=== PATIENT | male | born 1980 | race Caucasian/White ===

== ENCOUNTER 2018-02-17 19:02 | Emergency (ER) | payer SELFPAY ==
[2018-02-17 19:03] VITALS: BP 142/86; PULSE 111; RESP 16; TEMP 36.7; O2SAT 98; BMI 21.7
--- NOTE | 2018-02-17 19:26 | EKG12_ITS ---
Test Reason : MENTAL HEALTH Blood Pressure : / mmHG Vent. Rate : 116 BPM Atrial Rate : 116 BPM P-R Int : 120 ms QRS Dur : 092 ms QT Int : 324 ms P-R-T Axes : 087 093 -62 degrees QTc Int : 450 ms Sinus tachycardia Right atrial enlargement Rightward axis T wave abnormality, consider inferolateral ischemia Abnormal ECG Confirmed by RACHEL VIGIL, MARYANNE ([id number]), mapping editor MAXI RODRIGUEZ ([id number]) on 02/20/2018 1:39:06 PM Referred By: BEAR Confirmed By:MARYANNE RAMOS MD
[2018-02-17] MEDS: Haloperidol 5 MG Tablet PO (19:45)
[2018-02-17] MEDS: LORazepam 1 MG Tablet 2 MG PO (19:45)
--- NOTE | 2018-02-17 20:20 | RAD_ITS ---
STUDY: X-RAY - RIGHT HAND REASON FOR EXAM: Male, 37 years old. Pain, punched something TECHNIQUE: 3 view(s) of the hand. COMPARISON: None. FINDINGS: Normal radiocarpal articulation. Normal distal radioulnar joint. Normal visualized carpal bones. Normal carpal articulations Normal carpometacarpal articulation of the thumb. Normal second through fifth carpometacarpal joints. Normal metacarpi. Normal metacarpophalangeal joint of the thumb. Normal interphalangeal joint of the thumb. Normal proximal and distal phalanges of the thumb. Normal metacarpophalangeal joints of the second through fifth fingers. Normal proximal and distal interphalangeal joints of the second through fifth fingers. Normal phalanges of the second through fifth fingers. 2 mm radiopaque probable foreign body within the soft tissue at the thenar eminence. RAD/Hand Min 3 Views IMPRESSION: No acute bony injury of the hand. Probable foreign body at the base of the thumb near the thenar eminence. Electronically Signed: Mat Yung DO at 21:08 EST Tel [phone], Service support ,
--- NOTE | 2018-02-17 20:41 | ED.DCSUM_ITS ---
- ER Visit Summary Date of Service: 02/17/18 Chief Complaint: Hearing voices History of Present Illness: The patient is a 37 M who denies any prior psychiatric condition presents to the emergency department with delusions and hallucinations. The patient states that he self medicates with methamphetamines. He states that he uses almost daily. Over the past few weeks, he has been increasingly hostile. He has been threatening his parents. He is also been hearing voices that have been telling him to do things. He denies being suicidal. He has had aggressive behavior towards his family. The patient denies any other alcohol or drug abuse. He has no history of psychiatric conditions. Physical Examination: Vital signs reviewed General: Well-nourished, well-developed Head: Normocephalic, atraumatic Eyes: Pupils equal and reactive, extraocular muscles intact Neck, supple, no lymphadenopathy Heart: Regular rate and rhythm Respiratory: No distress, clear bilaterally Abdomen: Soft, nontender, nondistended, no peritoneal signs Back: Nontender Extremities: Nontender, no edema, no cords Skin: Normal color no rash Neuro: Alert and oriented, no focal or lateralizing deficits Test Results: [] Emergency Department Course and Treatment: The patient does appear to be internally stimulated. He was given oral Ativan and Haldol.] The patient did get aggressive with his uncle who is in the room. He actually eloped from the emergency department. Police were able to bring him back. The patient was then given Geodon and Benadryl. He was resting more comfortably. His labs are unremarkable. His tox was positive for methamphetamines and benzodiazepines. My concern is that the patient has decompensated psychiatric illness in light of his drug abuse. He is paranoid. I have filled out a pink slip. The patient will undergo psychiatric evaluation and will be transferred. Treatment Plan: [] Disposition: Pending Impression: 1. Hallucinations 2. Psychosis This note was generated with Prism [employer] dictation software. It may contain incorrect words, spelling, and punctuation that were not noted in review of the chart prior to signing ED Disposition - Plan for ED Patient: Chief Complaint: Mental Health Referrals: Care Physician,No Primary [Primary Care Provider] -
--- NOTE | 2018-02-17 20:45 | CM.ED ---
SOCIAL WORK NOTE PT HERE TO BE EVALUATED BY CRISIS. PT ATTEMPTED TO LEAVE. SUPPORT PROVIDED TO PT'S FAMILY. ALL QUESTIONS ANSWERED. AWAITING CRISIS EVAL AT THIS TIME. EARNEST ARVIZU, SOLE DYER, WEB PRODUCER.
--- NOTE | 2018-02-17 20:56 | ED.RN ---
AT 2044 THIS NURSE WAS INFORMED THAT PT LEFT THE EMERGENCY DEPARTMENT AND HRO AND SECURITY WERE LOOKING FOR PT.
[2018-02-17 21:14] LABS: Absolute Lymphocyte Count 4.02 X10^3/ul (0.83-4.51); Absolute Neutrophil Count 7.6 X10^3/uL (2.0-7.7); Basophil# 0.04 X10^3/uL; Basophil% 0.3 % (0-1); Eosinophil# 0.32 X10^3/uL; Eosinophils% 2.5 % (0-5); Hematocrit 45.8 % (40-54); Hemoglobin 15.5 g/dl (13.0-16.5); Lymphocyte # 4.02 X10^3/ul (4.0); Lymphocyte % 31.2 % (19-41); Mean Corp Hgb Conc 33.8 g/gl (32-36); Mean Corpuscular Hgb 31.8 pg (27.0-32.0); Mean Corpuscular Volume 93.9 fL (80-94); Mean Platelet Vol. 8.6 fl (6.2-12.0); Monocyte# 0.83 X10^3/uL; Monocyte% 6.4 % (0-10); Neutrophil # 7.63 X10^3/uL (2.7-7.7); Neutrophil % 59.4 % (47-70); POSITIVE COUNT NO; POSITIVE DIFFERENTIAL NO; POSITIVE MORPHOLOGY NO; Platelet Count 408 K/mm3 (150-450); RBC Distribution Width CV 12.6 % (11.6-14.6); RBC Distribution Width SD 42.4 fl (35.1-43.9); Red Blood Count 4.88 M/mm3 (4.6-6.2); White Blood Count 12.9 K/mm3 (4.4-11.0)
--- NOTE | 2018-02-17 21:19 | ED.RN ---
PT SITTING UP ON BED EATING CANDY AND POLICE AT DOORWAY, TYLER ARIAS RN, TALKING TO PT AND EXPLAINING REASON TO GIVE BENADRYL & GEODON.PT REFUSING MEDICATION AT THIS TIME.
[2018-02-17 21:28] LABS: Anion Gap 8 (5-15); BUN 11 mg/dL (7-18); BUN/Creat Ratio 10.1 RATIO (10-20); Calcium,Total 9.5 mg/dL (8.5-10.1); Chloride 102 mmol/L (98-107); Creatinine, Serum 1.09 mg/dL (0.70-1.30); EST Glomerular Filtration Rate 81 mL/min (>60); Est Glom Filt Rate - Afr Amer 98 mL/min (>60); Estimated Creatinine Clearance 101.64 ml/min; Glucose 107 mg/dL (74-106); Sodium Level 139 mmol/L (136-145)
[2018-02-17 21:31] LABS: Amphetamine Urine VISTA POSITIVE (<1000 ng/mL); Barbiturate Urine VISTA NEGATIVE (< 200 ng/mL); Benzodiazepine Urine VISTA POSITIVE (< 200 ng/mL); Cocaine Urine VISTA NEGATIVE (< 300 ng/mL); Ecstacy Urine VISTA NEGATIVE (< 500 ng/mL); Methadone Urine VISTA NEGATIVE (< 300 ng/mL); PCP Urine VISTA NEGATIVE (< 25 ng/mL); THC Urine VISTA NEGATIVE (< 50 ng/mL); Vista UDS pH Range 6
[2018-02-17] MEDS: DiphenhydrAMINE 50 MG/ML Syringe IM (21:45)
[2018-02-17] MEDS: Ziprasidone IM 20 MG/ML VIAL IM (21:45)
[2018-02-17 21:48] LABS: Alcohol, Blood (Medical)-Serum < 3.0 mg/dL
--- NOTE | 2018-02-17 23:25 | CT_ITS ---
STUDY: CT BRAIN WITHOUT CONTRAST REASON FOR EXAM: Male, 37 years old. Depression RADIATION DOSAGE (If Supplied By Facility): CTDIvol = ( 44.99 ) mGy, DLP = ( 973.55 ) mGycm TECHNIQUE: Transaxial CT imaging of the brain was performed without administration of intravenous contrast material. Individualized dose optimization techniques were used for this CT. COMPARISON: None. FINDINGS: Normal soft tissue structures. Normal calvarium. Normal size ventricles and extra-axial spaces for the patient's age. Normal white matter tracts of the cerebral hemispheres. Normal basal ganglia and thalami. Normal brainstem. Normal cerebellum. There is no intracranial hemorrhage. There are no findings of an acute ischemic infarction. Normal visualized paranasal sinuses. CT/Brain/Head without Contrast IMPRESSION: Normal unenhanced CT scan of the brain. No acute findings in the brain Electronically Signed: Antwon Melchor MD at 0:16 EST Tel , Service support ,
[2018-02-17 23:27] VITALS: RESP 16
--- NOTE | 2018-02-17 23:36 | ED.RN ---
ROSA MARIA FROM CRISIS IS HERE TO TAKE OVER FOR SYDNI FROM CRISIS. HE IS SEEING THIS PT NOW.
[2018-02-17 23:38] LABS: Bacteria 0 SEEN /hpf (None Seen); Mucous, Urine 0 SEEN /hpf (<or=2+)
[2018-02-18] VITALS (14 sets, daily range): BP systolic 110–129; BP diastolic 56–87; PULSE 76–132; RESP 12–16; O2SAT 95–100
[2018-02-18 00:08] LABS: Color, Urine Yellow (Yellow); Glucose, Dipstick NEGATIVE (Normal); Ketone-Dipstick Negative (Negative); Leukocyte Esterase-Dipstick Negative /ul (Negative); Nitrite-Dipstick Negative (Negative); Occult Blood-Urine Negative /ul (Negative); Protein-Dipstick 15 mg/dl (Negative); Specific Gravity, Urine 1.015 (1.002-1.030); Urine Bilirubin Dipstick Negative (Negative); Urine Clarity Sl Cldy (Clear); Urine Urobilinogen 1 mg/dl (Normal); Urine pH 6.5 (5.0 - 8.0)
[2018-02-18 00:27] LABS: AST(SGOT) 29 U/L (15-37); Alanine Aminotransfer ALT/SGPT 28 U/L (16-61); Albumin, Serum 4.7 g/dL (3.2-5.0); Alkaline Phosphatase 55 U/L (45-117); Bilirubin, Direct 0.18 mg/dL (0.00-0.30); Globulin 3.8 g/dL (2.2-4.2); Protein, Total 8.5 g/dL (6.4-8.2)
[2018-02-18 00:48] LABS: Red Blood Cells-Urine 0-5 SEEN /hpf (0-5); Squamous Epithelial Cells - UA 0-5 SEEN /hpf (0-5); White Blood Cells 0-5 SEEN /hpf (0-5)
--- NOTE | 2018-02-18 11:19 | NURSING ---
ACCEPTED AT [facility]. WAITING ON A BED
--- NOTE | 2018-02-18 12:17 | ED.RN ---
shouting heard from room 3. pt was shouting. I need a cigarette. Multiple RN's responded to the room. pt exited the room looking for a exit from the department. After being unable to exit through door at the back of the department he turned around and walked to the front of the department and exited the EMS doors. An additional RN and my self exited after the patient, but maintained an safe following distance. pt walked to his vehicle, but doors were locked at which point he began swearing. family or friend that was with the patient in the room stepped out of the depart and gave the patient a cigarette. security arrived to the ER entrance at this point. second RN returned to duties. pt entered the unit after finishing his cigarette. clothing and boots removed from the pt room. aroldo valladares 1200
[2018-02-18] MEDS: LORazepam 1 MG Tablet 2 MG PO (13:31)
--- NOTE | 2018-02-18 13:36 | NURSING ---
CALLED [facility] FOR TRANSPORT. ETA IS 45 MIN TO 60 MIN
[2018-02-18] MEDS: Haloperidol 5 MG Tablet 10 MG PO (14:05)
[2018-02-18] MEDS: DiphenhydrAMINE 25 MG Capsule 50 MG PO (14:05)
--- NOTE | 2018-02-18 14:22 | ED.RN ---
PT RESTING QUIETLY IN BED WITH EYES CLOSED, RESPONDS TO NAME. COOPERATES WITH TAKING ADDITIONAL PO MEDS. MOTHER REMAINS AT BEDSIDE.
== END 2018-02-18 14:44 ==
PROVIDERS: Emergency Medicine; Emergency Provider Emergency Medicine
DX: F29 Unspecified psychosis not due to a substance or known physiological condition (principal)
CPT/HCPCS: 70450; 73130; 80048; 80076; 80307; 80320; 81001; 85025; 93005; 96372; 99284; G0480; J3486